=== PATIENT | female | born 1980 | race Caucasian/White ===

== ENCOUNTER 2017-07-19 12:24 | Emergency (ER) | payer OTHER ==
[~2017-07-19] VITALS: Ht 162.6 cm; Wt 108.9 kg
[~2017-07-19 12:24] MED LIST: DIAZ5TAB PO; HYDR-971 PO; NAPR500T8 PO
[2017-07-19 13:16] VITALS: BP 156/87
[2017-07-19] MEDS ORDERED: KETOROLAC 60 MG/2 ML INJ. IM ONE (14:00)
[2017-07-19] MEDS ORDERED: DEXAMETHASONE SOD PHOS 20 MG/5 ML VIAL. IM ONE (14:00)
--- NOTE | 2017-07-19 14:04 | PHYS DOC ---
Past Medical History Past Medical History: Other Additional Past Medical Histor: 2 bulging disc in lower lumbar Past Surgical History: Cholecystectomy, Hysterectomy, Tonsillectomy Additional Past Surgical Histo: RIGHT BREAST BX, BILATERAL BREAST AUGUMENTATION Alcohol Use: None Drug Use: None Adult General Chief Complaint Chief Complaint: BACK PAIN OR INJURY HPI HPI Patient is a 36 year old female with history of herniated disks who presents today with moderate low back pain that began today while doing chest compressions on a manikin. Patient denies pain radiating to bilateral lower extremities. Patient denies any numbness or tingling to bilateral lower extremities. Denies any loss of bowel bladder function. She states her pain is worse on sitting on a buttocks. Review of Systems Review of Systems Constitutional: Denies fever or chills [] GI: Denies abdominal pain, nausea, vomiting, bloody stools or diarrhea [] : Denies dysuria or hematuria [] Musculoskeletal: Low back pain Integument: Denies rash or skin lesions [] Neurologic: Denies headache, focal weakness or sensory changes [] Current Medications Current Medications Current Medications Medications (Trade) Dose Ordered Sig/Jose Start Time Stop Time Status Last Admin Dose Admin Dexamethasone Sodium Phosphate (Decadron) 20 mg 1X ONCE 07/19/17 14:00 07/19/17 14:01 DC Ketorolac Tromethamine (Toradol Im) 60 mg 1X ONCE 07/19/17 14:00 07/19/17 14:01 DC Allergies Allergies Allergies Coded Allergies Type Severity Reaction Last Updated Verified Penicillins Allergy Intermediate 03/17/15 No latex Allergy Intermediate 03/17/15 No Physical Exam Physical Exam Constitutional: Well developed, well nourished, no acute distress, non-toxic appearance. [] Skin: Warm, dry, no erythema, no rash. [] Back: Diffuse paraspinal muscle tenderness bilateral lumbar spine, no midline lumbar spine tenderness, no CVA tenderness. [] Extremities: No tenderness, no cyanosis, no clubbing, ROM intact, no edema. [] Neurologic: Alert and oriented X 3, normal motor function, normal sensory function, no focal deficits noted. [] Psychologic: Affect normal, judgement normal, mood normal. [] Current Patient Data Vital Signs Vital Signs Date Time Temp Pulse Resp B/P (MAP) Pulse Ox O2 Delivery O2 Flow Rate FiO2 10/21/17 13:16 99.0 98 16 99 Room Air 99.0 EKG EKG [] Radiology/Procedures Radiology/Procedures [] Course & Med Decision Making Course & Med Decision Making Pertinent Labs and Imaging studies reviewed. (See chart for details) This is a 36-year-old female patient presenting to the ED today with low back pain after doing CPR on a mannikin in the hospital. No daily cauda equina syndrome symptoms. Patient was discharged with Flexeril and naproxen. F/u with PCP in one week. Dragon Disclaimer Dragon Disclaimer This electronic medical record was generated, in whole or in part, using a voice recognition dictation system. Departure Departure Impression: Primary Impression: Acute myofascial strain of lumbar region Disposition: HOME, SELF-CARE Condition: STABLE Referrals: GARRETT MURRAY MD (PCP) follow up in one week Patient Instructions: Lumbosacral Strain Additional Instructions: You were seen for lumbosacral strain. Apply heat to your low back. Avoid lifting anything greater than a gallon of milk for 3 days. Take the prescribed medicines as needed for pain. Do not drive or operate machinery on the Flexeril medications. Scripts Naproxen (NAPROXEN) 500 Mg Tablet 1 TAB PO BID, #20 TAB 0 Refills Prov: GABRIEL MATUTE APRN 07/19/17 Cyclobenzaprine Hcl (CYCLOBENZAPRINE HCL) 10 Mg Tablet 1 TAB PO TID, #30 TAB Prov: GABRIEL MATUTE APRN 07/19/17 Problem Qualifiers Primary Impression: Acute myofascial strain of lumbar region Encounter type: initial encounter Qualified Codes: S39.012A - Strain of muscle, fascia and tendon of lower back, initial encounter GABRIEL MATUTE APRN Jul 19, 2017 14:04
[2017-07-19] MEDS ORDERED: NAPR500T4 PO (14:11)
[2017-07-19] MEDS ORDERED: CYCL10TA2 PO (14:11)
== END 2017-07-19 14:39 | disposition home or self-care (01) ==
LOC: ER 12:24
DX: S39.012A Strain of muscle, fascia and tendon of lower back, initial encounter (principal); X58.XXXA Exposure to other specified factors, initial encounter; Y93.89 Activity, other specified; Y99.8 Other external cause status; Y92.89 Other specified places as the place of occurrence of the external cause
CPT/HCPCS: 96372; 99285; J1100; J1885

== ENCOUNTER 2017-12-27 19:34 | Emergency (ER) | payer OTHER ==
[2017-12-27] MEDS: IV NORMAL SALINE 1000ML BAG 1,000 ML IV ×2 (20:11→22:24)
[2017-12-27 20:12] LABS: ADD MAN DIFF? NO
[2017-12-27 20:14] LABS: BASO % 1 % (0-3); EOS # 0.1 x10^3/uL (0.0-0.7); EOS % 1 % (0-3); HEMATOCRIT 45.1 % (36.0-47.0); LYMPH # 1.8 x10^3/uL (1.0-4.8); LYMPH % 19 % (24-48); MEAN CORPUSCULAR HEMOGLOBIN 28 pg (25-35); MEAN CORPUSCULAR HGB CONC 33 g/dL (31-37); MEAN CORPUSCULAR VOLUME 83 fL (79-100); MONO # 0.6 x10^3/uL (0.0-1.1); MONO % 6 % (0-9); NEUT # 7.2 x10^3uL (1.8-7.7); NEUT % 74 % (31-73); PLATELET COUNT 348 x10^3/uL (140-400); RED BLOOD COUNT 5.43 x10^6/uL (3.50-5.40); RED CELL DISTRIBUTION WIDTH 13.5 % (11.5-14.5); WHITE BLOOD COUNT 9.7 x10^3/uL (4.0-11.0)
[2017-12-27] MEDS: ONDANSETRON PF 4 MG/2 ML VIAL. IV ×2 (20:20→20:23)
[2017-12-27 20:26] LABS: PROTHROMBIN TIME PATIENT 12.7 SEC (11.7-14.0)
[2017-12-27 20:42] LABS: ANION GAP 11 (6-14); BLOOD UREA NITROGEN 8 mg/dL (7-20); CALCIUM 9.6 mg/dL (8.5-10.1); CARBON DIOXIDE 27 mmol/L (21-32); CHLORIDE 101 mmol/L (98-107); CREATININE 0.9 mg/dL (0.6-1.0); GFR 69.7; GLUCOSE 100 mg/dL (70-99); POTASSIUM 3.8 mmol/L (3.5-5.1); SODIUM 139 mmol/L (136-145)
[2017-12-27 20:47] LABS: TROPONINI < 0.017 ng/mL (0.000-0.055)
[2017-12-27 20:53] LABS: ALK PHOS 86 U/L (46-116); ALT (SGPT) 34 U/L (14-59); AST (SGOT) 29 U/L (15-37); DIRECT BILIRUBIN 0.1 mg/dL (0.0-0.2); LIPASE 208 U/L (73-393); MAGNESIUM 2.1 mg/dL (1.8-2.4); TOTAL BILIRUBIN 0.5 mg/dL (0.2-1.0); TOTAL PROTEIN 8.6 g/dL (6.4-8.2)
[2017-12-27 20:59] LABS: THYROID STIM HORMONE (TSH) 0.987 uIU/mL (0.358-3.74)
[2017-12-27] MEDS: fentaNYL PF VIAL 100 MCG/2 ML VIAL IV (21:04)
[2017-12-27 21:06] LABS: BILIRUBIN,URINE NEGATIVE (NEG); COLOR,URINE YELLOW; GLUCOSE,URINE NEGATIVE (NEG); NITRITE,URINE NEGATIVE (NEG); PH,URINE 7.5; PROTEIN,URINE NEGATIVE (NEG-TRACE); UROBILINOGEN,URINE 0.2 mg/dL (0.2 mg/dL)
[2017-12-27 21:07] LABS: URINE HCG POC HCG NEGATIVE (Negative)
[2017-12-27 21:07] LABS: CLARITY,URINE HAZY
[2017-12-27 21:11] LABS: NT-PRO BNP 49 pg/mL (0-124)
[2017-12-27 21:11] LABS: BACTERIA,URINE FEW /HPF (0-FEW); CKMB INDEX 0.7 % (0-4); CKMB MASS 0.8 ng/mL (0.0-3.6); CREATINE KINASE 110 U/L (26-192); RBC,URINE 0 /HPF (0-2); SQUAMOUS EPITHELIAL CELL,UR FEW /LPF; WBC,URINE OCC /HPF (0-4)
[2017-12-27 21:25] LABS: BARBITURATES NEG (NEG); BENZODIAZEPINES NEG (NEG); CANNABINOIDS NEG (NEG); COCAINE NEG (NEG); METHADONE NEG (NEG); OPIATES NEG (NEG); PHENCYCLIDINE NEG (NEG)
[2017-12-27 21:26] LABS: AMPHETAMINE/METHAMPHETAMINE NEG (NEG); ETHANOL, URINE NEG (NEG)
[2017-12-27] MEDS: KETOROLAC 30 MG/ML INJ. IV (21:30)
[2017-12-27] MEDS: PROMETHAZINE 12.5 MG in IV DEXTROSE 5% 50 ML IV (22:01)
== END 2017-12-27 23:22 | disposition home or self-care (01) ==
LOC: ER 19:34
DX: K52.9 Noninfective gastroenteritis and colitis, unspecified (principal); Z90.710 Acquired absence of both cervix and uterus; Z90.49 Acquired absence of other specified parts of digestive tract; Z88.0 Allergy status to penicillin; Z91.040 Latex allergy status
CPT/HCPCS: 36415; 80048; 80076; 80307; 81001; 81025; 82553; 83690; 83735; 83880; 84443; 84484; 85025; 85610; 87086; 93005; 96361; 96365; 96375; 99285-25; J1885; J2405; J2550; J3010; J7030

== ENCOUNTER 2020-06-29 18:11 | Emergency (ER) | payer BC, OTHER ==
[~2020-06-29] VITALS: Ht 165.1 cm; Wt 112.0 kg
[~2020-06-29 18:11] MED LIST changes: +CYCL10TA2 PO; +HYDR-3164 PO; -HYDR-971 PO; +NAPR-514 PO; +ONDA4TAB10 SL
[2020-06-29] MEDS ORDERED: ACETAMINOPHEN 500 MG TABLET PO ONE (18:30)
[2020-06-29] MEDS ORDERED: METOCLOPRAMIDE HCL 10 MG/2 ML VIAL. IVP ONE (18:30)
[2020-06-29] MEDS ORDERED: IV NORMAL SALINE 1000ML BAG 1,000 ML IV ONE (18:30)
--- NOTE | 2020-06-29 18:31 | PHYS DOC ---
Past Medical History Past Medical History: Other Additional Past Medical Histor: 2 bulging disc in lower lumbar Past Surgical History: Cholecystectomy, Hysterectomy, Tonsillectomy Additional Past Surgical Histo: RIGHT BREAST BX, BILATERAL BREAST AUGUMENTATION Smoking Status: Never Smoker Alcohol Use: None Drug Use: None General Adult EDM: Chief Complaint: SHORTNESS OF BREATH HPI: HPI: The history was obtained from the patient. Patient is a 39-year-old female with PMH anxiety who presents with a chief complaint of cough, shortness of breath, chest pressure. Patient states she has had a runny nose and congestion for the past 5 days. She also has noted a dry cough. She states she is felt intermittently short of breath when she gets up and moves. She states she is no t short of breath at rest. She notes that she has had chest pressure that began 1 hour ago and is been constant. States it is nonradiating. She has tried Pepto-Bismol at home with no relief. Denies any history of exertional chest pain or shortness of breath. Denies any recent travel or road trips. 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 Denies back pain or abdominal pain. Denies syncope. Denies urinary symptoms. Denies objective fevers. Has not been on antibiotics recently. Denies any family history of cardiac disease at young age. Denies any associated nausea or diaphoresis. No other complaints. Patient denies any history of immobilization greater than 48 hours, recent hospitalizations, recent surgery, recent trauma, , oral contraceptive usage, hormone replacement therapy, air travel greater than 8 hours, recent infectious disease, or general deterioration of their overall condition. Review of Systems: Review of Systems: Constitutional: Denies fever or chills. [] Eyes: Denies change in visual acuity. [] HENT: Denies nasal congestion or sore throat. [] Respiratory: Positive for cough and shortness of breath Cardiovascular: Positive for chest pain GI: Denies abdominal pain, nausea, vomiting, bloody stools or diarrhea. [] : Denies dysuria. [] Musculoskeletal: Denies back pain or joint pain. [] Integument: Denies rash. [] Neurologic: Denies headache, focal weakness or sensory changes. [] Endocrine: Denies polyuria or polydipsia. [] Lymphatic: Denies swollen glands. [] Psychiatric: Denies depression or anxiety. [] Heart Score: HEART Score for Chest Pain: HEART Score for Chest Pain Response (Comments) Value History Slighlty/Non-Suspicious 0 ECG Nonspecific Repolarizatio 1 Age < 45 0 Risk Factors No Risk Factors 0 Troponin < Normal Limit 0 Total 1 Risk Factors: Risk Factors: DM, Current or recent (<one month) smoker, HTN, HLP, family history of CAD, obesity. Risk Scores: Score 0 - 3: 2.5% MACE over next 6 weeks - Discharge Home Score 4 - 6: 20.3% MACE over next 6 weeks - Admit for Clinical Observation Score 7 - 10: 72.7% MACE over next 6 weeks - Early Invasive Strategies Current Medications: Current Medications Medications (Trade) Dose Ordered Sig/Jose Start Time Stop Time Status Last Admin Dose Admin Acetaminophen (Tylenol) 1,000 mg 1X ONCE 06/29/20 18:30 06/29/20 18:31 UNV Metoclopramide HCl (Reglan Vial) 10 mg 1X ONCE 06/29/20 18:30 06/29/20 18:31 Sodium Chloride 1,000 ml @ 1,000 mls/hr 1X ONCE 06/29/20 18:30 06/29/20 19:29 Allergies: Allergies: Allergies Coded Allergies Type Severity Reaction Last Updated Verified Penicillins Allergy Intermediate 03/17/15 No latex Allergy Intermediate 03/17/15 No Physical Exam: PE: Constitutional: Well developed, well nourished, no acute distress, non-toxic appearance. [] HENT: Normocephalic, atraumatic, bilateral external ears normal, oropharynx moist, no oral exudates, nose normal. [] Eyes: PERRLA, EOMI, conjunctiva normal, no discharge. [] Neck: Normal range of motion, no tenderness, supple, no stridor. [] Cardiovascular:Heart rate regular rhythm, no murmur [] Lungs & Thorax: Bilateral breath sounds clear to auscultation [] Abdomen: Bowel sounds normal, soft, no tenderness, no masses, no pulsatile masses. [] Skin: Warm, dry, no erythema, no rash. [] Back: No tenderness, no CVA tenderness. [] Extremities: No tenderness, no cyanosis, no clubbing, ROM intact, no edema. [] Neurologic: Alert and oriented X 3, normal motor function, normal sensory function, no focal deficits noted. [] Psychologic: Affect normal, judgement normal, mood normal. [] Current Patient Data: Labs: Laboratory Tests Test 06/29/20 18:25 06/29/20 19:17 White Blood Count 8.8 x10^3/uL Red Blood Count 5.10 x10^6/uL Hemoglobin 14.2 g/dL Hematocrit 41.5 % Mean Corpuscular Volume 81 fL Mean Corpuscular Hemoglobin 28 pg Mean Corpuscular Hemoglobin Concent 34 g/dL Red Cell Distribution Width 14.3 % Platelet Count 308 x10^3/uL Neutrophils (%) (Auto) 63 % Lymphocytes (%) (Auto) 27 % Monocytes (%) (Auto) 8 % Eosinophils (%) (Auto) 2 % Basophils (%) (Auto) 1 % Neutrophils # (Auto) 5.5 x10^3/uL Lymphocytes # (Auto) 2.3 x10^3/uL Monocytes # (Auto) 0.7 x10^3/uL Eosinophils # (Auto) 0.2 x10^3/uL Basophils # (Auto) 0.1 x10^3/uL D-Dimer (Sirisha) 1.31 ug/mlFEU Sodium Level 138 mmol/L Potassium Level 3.5 mmol/L Chloride Level 100 mmol/L Carbon Dioxide Level 29 mmol/L Anion Gap 9 Blood Urea Nitrogen 14 mg/dL Creatinine 1.0 mg/dL Estimated GFR (Cockcroft-Gault) 61.1 BUN/Creatinine Ratio 14 Glucose Level 90 mg/dL Calcium Level 10.0 mg/dL Total Bilirubin 0.4 mg/dL Aspartate Amino Transf (AST/SGOT) 31 U/L Alanine Aminotransferase (ALT/SGPT) 43 U/L Alkaline Phosphatase 85 U/L Troponin I Quantitative < 0.017 ng/mL Total Protein 7.7 g/dL Albumin 3.9 g/dL Albumin/Globulin Ratio 1.0 Lipase 266 U/L Urine Collection Type Void Urine Color Yellow Urine Clarity Clear Urine pH 7.0 Urine Specific [place] <=1.005 Urine Protein Negative mg/dL Urine Glucose (UA) Negative mg/dL Urine Ketones (Stick) Trace mg/dL Urine Blood Negative Urine Nitrite Negative Urine Bilirubin Negative Urine Urobilinogen Dipstick 0.2 mg/dL Urine Leukocyte Esterase Negative Urine RBC 0 /HPF Urine WBC 1-4 /HPF Urine Squamous Epithelial Cells Few /LPF Urine Bacteria Few /HPF Current Medications Medications (Trade) Dose Ordered Sig/Jose Route PRN Reason Start Time Stop Time Status Last Admin Dose Admin Sodium Chloride 1,000 ml @ 1,000 mls/hr 1X ONCE IV 06/29/20 18:30 06/29/20 19:29 DC 06/29/20 19:25 Metoclopramide HCl (Reglan Vial) 10 mg 1X ONCE IVP 06/29/20 18:30 06/29/20 18:31 DC 06/29/20 19:23 Acetaminophen (Tylenol) 1,000 mg 1X ONCE PO 06/29/20 18:30 06/29/20 18:31 DC 06/29/20 19:22 Iohexol (Omnipaque 350 Mg/ml) 100 ml 1X ONCE IV 06/29/20 19:45 06/29/20 19:46 DC 06/29/20 19:58 Info (CONTRAST GIVEN -- Rx MONITORING) 1 each PRN DAILY PRN MC SEE COMMENTS 06/29/20 19:45 07/01/20 19:44 Ketorolac Tromethamine (Toradol 15mg Vial) 15 mg 1X ONCE IVP 06/29/20 20:00 06/29/20 20:01 Vital Signs: Vital Signs Date Time Temp Pulse Resp B/P (MAP) Pulse Ox O2 Delivery O2 Flow Rate FiO2 06/29/20 18:18 97.8 95 18 179/87 (117) 98 Room Air 97.8 EKG: EKG: EKG consistent with normal sinus rhythm. Ventricular rate of 84 bpm. [place] n ormal. Intervals normal. Low voltage QRS noted in lead III. No acute ischemic changes appreciated. [] Radiology/Procedures: Radiology/Procedures: [facility] [address] [place], [place] [id number] IMAGING REPORT Signed PATIENT: YING SCHERER ACCOUNT: [id number] : 1980 LOCATION: ER AGE: 39 SEX: F EXAM STATUS: REG ER ORD. PHYSICIAN: JULIOCESAR BURGOS DO REASON: CP and SOB. concern for PE PROCEDURE: CT ANGIOGRAPHY CHEST Exam: CT of chest with contrast INDICATION: Chest pain, shortness of breath,, concern for pulmonary embolus TECHNIQUE: Sequential axial images through the chest obtained following the administration of 100 mL of Isovue-370 IV contrast. Sagittal and coronal reformatted images were reconstructed from the axial data and reviewed. 3-D reformatted images were reconstructed from the axial data and reviewed. Comparisons: Chest x-ray same day FINDINGS: Visualized portions of the thyroid are unremarkable. No enlarged mediastinal lymph nodes are identified. Heart size is normal. No pericardial effusion. Thoracic aorta has a normal course and caliber. Pulmonary artery is not enlarged. No pulmonary embolus identified within the main, lobar or segmental pulmonary arteries. Airways are patent. No consolidation or pneumothorax. No suspicious lung nodules. No pleural effusion or thickening. Visualized upper abdomen is unremarkable. No suspicious osseous lesions or acute fractures. IMPRESSION: No pulmonary embolus identified within the main, lobar or segmental pulmonary arteries. Exposure: One or more of the following in the visualized dose reduction techniques were utilized for this examination: 1. Automated exposure control 2. Adjustment of the MA and/or KV according to patient size 3. Use of iterative of reconstructive technique Electronically signed by: Gerson Crow MD (06/29/2020 8:13 PM) [facility] DICTATED and SIGNED BY: GERSON CROW MD DATE: 06/29/202012 [facility] [address] [place] [address] IMAGING REPORT Signed PATIENT: YING SCHERER ACCOUNT: [id number] : 1980 LOCATION: ER AGE: 39 SEX: F EXAM STATUS: REG ER ORD. PHYSICIAN: JULIOCESAR BURGOS DO REASON: SOB PROCEDURE: CHEST AP ONLY Exam: Chest one view INDICATION: Shortness of breath TECHNIQUE: Frontal view of the chest Comparisons: None FINDINGS: The cardiomediastinal silhouette and pulmonary vessels are within normal limits. The lung and pleural spaces are clear. IMPRESSION: No acute cardiopulmonary process. Electronically signed by: Gerson Crow MD (06/29/2020 7:41 PM) [facility] DICTATED and SIGNED BY: GERSON CROW MD DATE: 06/29/201940 [] Course & Med Decision Making: Course & Med Decision Making Pertinent Labs and Imaging studies reviewed. (See chart for details) [] Patient is an overall well-appearing 39-year-old female who presents with chief complaint of chest pain associated with cough. Initial vital signs unremarkable. Initial EKG without acute ischemic changes. D-dimer was obtained as I do estimate the patient is low risk Wells criteria patient. This was slightly elevated. CT PE study was obtained and was unremarkable. I do estimate the patient be a low risk heart score. I did discuss the possibility of keeping the patient in the emergency department for an additional 6 hours for repeat troponin testing given the low sensitivity nature of our test. Patient is declining at this time and overall I do feel this is reasonable as I do estimate she is low risk heart score. She does understand the risks of not repeating troponin. I do feel her symptoms are most likely due to her persistent cough. COVID swab obtained and pending. Remainder of labs unremarkable. I do feel she is appropriate for discharge home with close outpatient follow-up. She was instructed to follow-up with her primary care physician in the next 2 to 3 days. She was given supportive care measures for cough. Return precautions were discussed and understood. She is stable for discharge home. COVID-19 CRITERIA: The patient was evaluated during the global COVID-19 pandemic, and that diagnosis was suspected/considered upon their initial presentation. Their evaluation, treatment and testing was consistent with current guidelines for patients who present with complaints or symptoms that may be related to COVID-19. Dragon Disclaimer: Dragon Disclaimer: This electronic medical record was generated, in whole or in part, using a voice recognition dictation system. Departure Departure Impression: Primary Impression: Cough Additional Impression: Chest pain Qualified Codes: R07.9 - Chest pain, unspecified Disposition: 01 HOME, SELF-CARE Condition: STABLE Referrals: GARRETT MURRAY MD (PCP) Patient Instructions: Chest Pain (Nonspecific) Additional Instructions: You have been tested for or diagnosed with COVID-19. It is an infection caused by a new type of coronavirus. COVID-19 will cause cold-like or mild flu symptoms in most. It can cause more severe symptoms like problems breathing in some. There is no treatment for COVID-19. The body will clear the infection over time. Self-care will help to ease discomfort. Steps to Take: Self-Care Rest as needed. Healthy habits may help you feel better. Steps include: Choose healthy foods including fruits and vegetables. Drink water throughout the day. Get plenty of sleep each night. If you smoke, try to quit. It may ease breathing. Avoid alcohol. Keep Others Healthy The virus can spread to others. Droplets are released every time you sneeze or cough. The droplets can get into the mouth, nose, or eyes of people near you and lead to infection. To lower the chances of spreading COVID-19 to others: Stay at home until your doctor has said it is safe to leave. If you tested positive this will mean staying isolated until both of the following are true: At least 7 days have passed since the start of illness. You are free of fever for at least 72 hours without the use of medicine. During this time: - Avoid public areas, events, or transportation. Do not return to work or school until your doctor has said it is safe to do so. - Call ahead if you need to go to a medical center. Let them know you may have COVID-19. It will help them guide you where to go. They may also ask you to wear a facemask when you come to the office. - If you call for emergency medical services, let them know you may have COVID- 19. While at home: - Try to avoid close contact with others. Stay about 6 feet away. - If possible, spend most of your time in a separate room from others. - Use a face mask if you will be in close contact with others such as sharing a room or vehicle. - Have someone wipe down common surfaces in the home. Use household window shade installer every day on areas like doorknobs, counters, or sinks. - Cough or sneeze into a tissue. Throw the tissue away right after use. If a tissue is not available, cough or sneeze into your elbow. - Wash your hands often. Wash them after sneezing or coughing. Use soap and ofelia er and wash for at least 20 seconds. Alcohol based hand cleaner and preparer can be used if soap and water is not available. - Do not prepare food for others. Avoid sharing personal items like forks, spoons, or toothbrushes. - Avoid close contact with pets while you are sick. There is no evidence of the virus passing to pets. This is a safety step until more is known about this virus. Isolation can be frustrating. Social interaction can help. Keep in touch with friends and family through phone and tech options. You can still interact with others in your home, just keep a safe distance of about 6 feet. Follow-up: Your doctors office will check in with you to see if there are any changes in your health. You may be asked to keep track of symptoms to share with them. They will also let you know when you are clear to be in public again. Problems to Look Out For: Contact your doctor if your recovery is not going as you expect. Get emergency care if you have problems such as: - Trouble breathing - Nonstop chest pain or pressure - Changes in awareness, confusion, or problems waking - Lips or face have bluish color - Worsening of symptoms If you think you have an emergency, call for emergency medical services right away. As taken from [facility] Script[facility] Benzonatate (TESSALON PERLE) 100 Mg Capsule 100 MG PO TID PRN for COUGH for 4 Days, #12 CAP Prov: JULIOCESAR BURGOS DO 06/29/20 Fluticasone Propionate (Flonase Allergy Relief) 9.9 Ml [place].susp 2 SPRAYS NS DAILY for 14 Days, #1 BOTTLE Prov: JULIOCESAR BURGOS DO 06/29/20 JULIOCESAR BURGOS DO Jun 29, 2020 18:31
[2020-06-29 18:45] LABS: BASO # 0.1 x10^3/uL (0.0-0.2); BASO % 1 % (0-3); EOS # 0.2 x10^3/uL (0.0-0.7); EOS % 2 % (0-3); HEMATOCRIT 41.5 % (36.0-47.0); HEMOGLOBIN 14.2 g/dL (12.0-15.5); LYMPH # 2.3 x10^3/uL (1.0-4.8); LYMPH % 27 % (24-48); MEAN CORPUSCULAR HEMOGLOBIN 28 pg (25-35); MEAN CORPUSCULAR HGB CONC 34 g/dL (31-37); MEAN CORPUSCULAR VOLUME 81 fL (79-100); MONO # 0.7 x10^3/uL (0.0-1.1); MONO % 8 % (0-9); NEUT # 5.5 x10^3/uL (1.8-7.7); NEUT % 63 % (31-73); PLATELET COUNT 308 x10^3/uL (140-400); RED CELL DISTRIBUTION WIDTH 14.3 % (11.5-14.5); WHITE BLOOD COUNT 8.8 x10^3/uL (4.0-11.0)
[2020-06-29 18:54] LABS: GFR 61.1; POTASSIUM 3.5 mmol/L (3.5-5.1)
[2020-06-29 19:00] LABS: ALBUMIN 3.9 g/dL (3.4-5.0); TOTAL BILIRUBIN 0.4 mg/dL (0.2-1.0); TOTAL PROTEIN 7.7 g/dL (6.4-8.2)
[2020-06-29 19:32] LABS: BILIRUBIN,URINE NEGATIVE (NEG); CLARITY,URINE CLEAR; COLOR,URINE YELLOW; NITRITE,URINE NEGATIVE (NEG); PROTEIN,URINE NEGATIVE (NEG-TRACE); UROBILINOGEN,URINE 0.2 mg/dL (0.2 mg/dL)
[2020-06-29 19:36] LABS: BACTERIA,URINE FEW /HPF (0-FEW); RBC,URINE 0 /HPF (0-2)
--- NOTE | 2020-06-29 19:44 | RAD ---
Exam: Chest one view INDICATION: Shortness of breath TECHNIQUE: Frontal view of the chest Comparisons: None FINDINGS: The cardiomediastinal silhouette and pulmonary vessels are within normal limits. The lung and pleural spaces are clear. IMPRESSION: No acute cardiopulmonary process. Electronically signed by: Gerson Perla MD (06/29/2020 7:41 PM) [facility]
[2020-06-29] MEDS ORDERED: IOHEXOL 350 MG/ML 100 ML VIAL. IV ONE (19:45)
[2020-06-29] MEDS ORDERED: CONTRAST GIVEN. MC PRN (19:45)
[2020-06-29] MEDS ORDERED: KETOROLAC 15 MG/ML VIAL. IVP ONE (20:00)
--- NOTE | 2020-06-29 20:16 | RAD ---
Exam: CT of chest with contrast INDICATION: Chest pain, shortness of breath,, concern for pulmonary embolus TECHNIQUE: Sequential axial images through the chest obtained following the administration of 100 mL of Isovue-370 IV contrast. Sagittal and coronal reformatted images were reconstructed from the axial data and reviewed. 3-D reformatted images were reconstructed from the axial data and reviewed. Comparisons: Chest x-ray same day FINDINGS: Visualized portions of the thyroid are unremarkable. No enlarged mediastinal lymph nodes are identified. Heart size is normal. No pericardial effusion. Thoracic aorta has a normal course and caliber. Pulmonary artery is not enlarged. No pulmonary embolus identified within the main, lobar or segmental pulmonary arteries. Airways are patent. No consolidation or pneumothorax. No suspicious lung nodules. No pleural effusion or thickening. Visualized upper abdomen is unremarkable. No suspicious osseous lesions or acute fractures. IMPRESSION: No pulmonary embolus identified within the main, lobar or segmental pulmonary arteries. Exposure: One or more of the following in the visualized dose reduction techniques were utilized for this examination: 1. Automated exposure control 2. Adjustment of the MA and/or KV according to patient size 3. Use of iterative of reconstructive technique Electronically signed by: Gerson Perla MD (06/29/2020 8:13 PM) [facility]
[2020-06-29] MEDS ORDERED: BENZ100C PO (20:47)
[2020-06-29] MEDS ORDERED: FLUT9.9S NS (20:47)
[2020-06-29 21:03] VITALS: BP 137/81
--- NOTE | 2020-06-30 13:16 | NUR ---
IP: Attempted to call COVID results, no answer. Left a voicemail to return call.
--- NOTE | 2020-06-30 13:20 | NUR ---
IP: Pt returned the call. Informed pt of negative COVID results. Pt verbalized understanding.
== END 2020-06-29 21:10 | disposition home or self-care (01) ==
LOC: ER 18:11
DX: R05 Cough (principal); R07.89 Other chest pain; Z20.828 Contact with and (suspected) exposure to other viral communicable diseases; R06.02 Shortness of breath; R09.89 Other specified symptoms and signs involving the circulatory and respiratory systems; R09.81 Nasal congestion; Z88.0 Allergy status to penicillin; Z91.040 Latex allergy status
CPT/HCPCS: 36415; 71045; 71275; 80053; 81001; 83690; 84484; 85025; 85379; 96361; 96374; 96375; 99285; J1885; J2765; J7030; Q9967; U0003

== ENCOUNTER → 2021-04-12 | Outpatient (CLI) | payer BC ==
[~2021-04-12] MED LIST changes: +BENZ100C PO; +FLUT9.9S NS
--- NOTE | 2021-04-13 16:31 | RESP ---
DATE OF SERVICE: 04/12/2021 ATTENDING PHYSICIAN: Gama Finley MD The patient underwent full PFTs. The FEV1 to FVC ratio was 84%, FEV1 was 3.06 liters, 121% of predicted. FVC was 4.27 liters, 116% of predicted. Total lung capacity was preserved. Residual volume was slightly elevated. Diffusion capacity was elevated. IMPRESSION: No significant evidence of obstructive or restrictive disorder per PFT. Doing a 6-minute walk, the patient did not have periods of O2 desaturation below 92%. SAPNA DR: eLna TID: [id number]
== END ==
LOC: PF 07:48
PROVIDERS: ATTEND Internal Medicine Pulmonary Disease
DX: R06.00 Dyspnea, unspecified (principal)
CPT/HCPCS: 94010; 94618; 94726; 94729

== ENCOUNTER → 2021-05-15 | Outpatient (CLI) | payer BC ==
--- NOTE | 2021-05-15 18:12 | CARD ---
MR#: [id number] Date of Study: 05/15/2021 Ordering Physician: NANCY KLEIN, Referring Physician: NANCY KLEIN Tech: Yanira Cavazos [facility] APPROVED REPORT EXAM: Two-dimensional and M-mode echocardiogram with Doppler and color Doppler. Other Information Quality : 2 INDICATION Dyspnea RISK FACTORS Hypertension 2D DIMENSIONS RVDd3.3 (2.9-3.5cm)Left Atrium(2D)2.8 (1.6-4.0cm) IVSd1.1 (0.7-1.1cm)Aortic Root(2D)2.9 (2.0-3.7cm) LVDd3.8 (3.9-5.9cm)LVOT Diameter2.1 (1.8-2.4cm) PWd1.0 (0.7-1.1cm)LVDs2.9 (2.5-4.0cm) FS (%) 24.6 %SV30.7 ml Aortic Valve AoV Peak Ptear.115.4cm/sAoV VTI24.1cm AO Peak GR.5.3mmHgLVOT Peak Petar.94.0cm/s AO Mean GR.3mmHgAVA (VMAX)2.81cm2 Mitral Valve MV E Fkipkxxe05.1cm/sMV DECEL [id number] MV A Vfisxcny86.8cm/sE/A Ratio1.1 Pulmonary Valve PV Peak Jgtxqiap26.1cm/s Tricuspid Valve TR P. Anxsiqld020gz/sTR Peak Gr.18mmHg LEFT VENTRICLE The left ventricle is normal size. There is normal left ventricular wall thickness. The left ventricu lar systolic function is normal and the ejection fraction is within normal range. Estimated LV eject ion fraction 55-60%. There is normal LV segmental wall motion. The left ventricular diastolic functio n and filling is normal for age. RIGHT VENTRICLE The right ventricle is normal size. There is normal right ventricular wall thickness. The right ventr icular systolic function is normal. ATRIA The left atrium size is normal. The right atrium size is normal. The interatrial septum is intact wit h no evidence for an atrial septal defect or patent foramen ovale as noted on 2-D or Doppler imaging. AORTIC VALVE Doppler and Color Flow revealed no significant aortic regurgitation. There is no significant aortic v alvular stenosis. MITRAL VALVE The mitral valve is normal in structure and function. There is no evidence of mitral valve prolapse. There is no mitral valve stenosis. Doppler and Color Flow revealed no mitral valve regurgitation note d. TRICUSPID VALVE The tricuspid valve is normal in structure and function. Doppler and Color Flow revealed mild tricusp id regurgitation. Estimated PAP 20 mmHg. There is no tricuspid valve stenosis. PULMONIC VALVE The pulmonary valve is normal in structure and function. Doppler and Color Flow revealed no pulmonic valvular regurgitation. GREAT VESSELS The aortic root is normal in size. The ascending aorta is normal in size. The IVC is normal in size a nd collapses >50% with inspiration. PERICARDIAL EFFUSION There is no evidence of significant pericardial effusion. Critical Notification Critical Value: No <Conclusion> The left ventricle is normal size. The left ventricular systolic function is normal and the ejection fraction is within normal range. Estimated LV ejection fraction 55-60%. Doppler and Color Flow revealed no significant aortic regurgitation. There is no significant aortic valvular stenosis. Doppler and Color Flow revealed no mitral valve regurgitation noted. Doppler and Color Flow revealed mild tricuspid regurgitation. Estimated PAP 20 mmHg. Signed by : Yaya Vital MD Electronically Approved : 05/15/2021 18:12:11
== END ==
LOC: ECHO 07:59
PROVIDERS: ATTEND Internal Medicine Cardiovascular Disease
DX: I36.1 Nonrheumatic tricuspid (valve) insufficiency (principal); R06.00 Dyspnea, unspecified
CPT/HCPCS: 93306